=== PATIENT | male | born 2000 | race African-American/Black ===

== ENCOUNTER 2020-12-17 07:24 | Emergency (ER) | payer BC, SELFPAY ==
--- NOTE | 2020-12-17 07:57 | EDPHYS ---
Physician Documentation [facility] Name: Chalino Grant Age: 20 yrs Sex: Male : 2000 Arrival Date: 12/17/2020 Time: 07:25 Bed 23 Private MD: ED Physician Jean Marie Cartagena HPI: 12/17 07:47 This 20 yrs old Black Male presents to ER via Ambulatory with complaints of Shortness rn Of Breath. 07:48 The patient has shortness of breath that woke him/her from sleep. Onset: The rn symptoms/episode began/occurred last night. Duration: The symptoms are intermittent. The patient's shortness of breath is aggravated by supine position, is alleviated by elevating head. Associated signs and symptoms: Pertinent positives: non-productive cough, Pertinent negatives: chest pain, productive cough, fever, hemoptysis, loss of consciousness, nausea, vomiting. Severity of symptoms: At their worst the symptoms were mild in the emergency department the symptoms have improved. The patient has experienced similar episodes in the past. Reports hx of asthma, no longer has inhaler, reports last night had trouble sleeping and felt sob, + dry cough, no fever/chills/muscle aches/nausea/vomiting/diarrhea. No chest pain or abd pain. Reports feels better when sitting up and currently denies any symptoms. Reports came in for inhaler. No known sick contacts. No cardiac problems, and denies any issues or syncope/chest pain with exertion. No famhx of early cardiac problems. . Historical: - Allergies: 07:28 Horse/Equine Containing Products; aa5 - PMHx: 07:28 Asthma; aa5 - Immunization history:: Flu vaccine is not up to date. It has been more than one year since last vaccine. - Social history:: Smoking status: Reported history of juuling and/or vaping. - Family history:: not pertinent. - Hospitalizations: : No recent hospitalization is reported. ROS: 07:48 Constitutional: Negative for fever, chills, and weight loss, Eyes: Negative for injury, rn pain, redness, and discharge, Neck: Negative for injury, pain, and swelling, Cardiovascular: Negative for chest pain, palpitations, and edema, Respiratory: + sob and cough last night, denies sob today Abdomen/GI: Negative for abdominal pain, nausea, vomiting, diarrhea, and constipation, Back: Negative for injury and pain, MS/Extremity: Negative for injury and deformity, Skin: Negative for injury, rash, and discoloration, Neuro: Negative for headache, weakness, numbness, tingling, and seizure. Exam: 07:48 Constitutional: This is a well developed, well nourished patient who is awake, alert, rn and in no acute distress. Ambulatory to room without difficulty. Head/Face: Normocephalic, atraumatic. Eyes: Pupils equal round and reactive to light, extra-ocular motions intact. Periorbital areas with no swelling, redness, or edema. ENT: NO stridor Neck: Trachea midline, no thyromegaly or masses palpated, and no cervical lymphadenopathy. Supple, full range of motion without nuchal rigidity, or vertebral point tenderness. No Meningismus. Cardiovascular: Regular rate and rhythm. No pulse deficits. Respiratory: No increased work of breathing, no retractions or nasal flaring. No wheezing. Abdomen/GI: soft, non-tender Skin: Warm, dry MS/ Extremity: Pulses equal, no cyanosis. Neurovascular intact. Full, normal range of motion. Equal circumference. Neuro: Awake and alert, GCS 15, oriented to person, place, time, and situation. Cranial nerves II-XII grossly intact. Motor strength 5/5 in all extremities. Sensory grossly intact. Cerebellar exam normal. Normal gait. Vital Signs: 07:28 BP 130 / 81; Pulse 83; Resp 18 S; Temp 98.4(O); Pulse Ox 100% on R/A; aa5 08:13 BP 111 / 72; Pulse 83; Resp 18; Pulse Ox 96% on R/A; kg Dianna Coma Score: 07:48 Eye Response: spontaneous(4). Verbal Response: oriented(5). Motor Response: obeys kg commands(6). Total: 15. MDM: 07:29 Patient medically screened. rn 07:48 Differential diagnosis: Anxiety Reaction asthma, Bronchitis URI. Data reviewed: vital rn signs, nurses notes, and as a result, I will discharge patient. Counseling: I had a detailed discussion with the patient and/or guardian regarding: the historical points, exam findings, and any diagnostic results supporting the discharge/admit diagnosis, the need for outpatient follow up, to return to the emergency department if symptoms worsen or persist or if there are any questions or concerns that arise at home. Special discussion: I discussed with the patient/guardian in detail that at this point there is no indication for admission to the hospital. It is understood, however, that if the symptoms persist or worsen the patient needs to return immediately for re-evaluation. Based on the history and exam findings, there is no indication for further emergent testing or inpatient evaluation. I discussed with the patient/guardian the need to see the primary care provider for further evaluation of the symptoms. ED course: Pt currently asymptomatic, clear lungs, no oxygen requirement, no chest pain, will dc home with refill of inhaler and steroids. No indication for emergent imaging or testing as patient feels fine. Return precautions given and understood. . Administered Medications: No medications were administered Disposition: 12/17/20 07:57 Discharged to Home. Impression: Dyspnea, unspecified, Asthma. - Condition is Stable. - Discharge Instructions: Allergies, Adult, Shortness of Breath, Asthma, Acute Bronchospasm. - Prescriptions for Prednisone 20 mg Oral Tablet - take 3 tablet by ORAL route once daily for 5 days; 15 tablet. Albuterol Sulfate 90 mcg/actuation - inhale 1-2 puff by INHALATION route every 4-6 hours; 1 Inhaler. - Medication Reconciliation Form, Thank You Letter, Antibiotic Education, Prescription Opioid Use form. - Follow up: Private Physician; When: As needed; Reason: Recheck today's complaints, Re-evaluation by your physician. - Problem is an ongoing problem. - Symptoms have improved. Signatures: Jean Marie Cartagena MD MD rn Calderon, Audri, RN RN aa5 Desire Holcomb kg Corrections: (The following items were deleted from the chart) 08:17 07:57 12/17/2020 07:57 Discharged to Home. Impression: Dyspnea, unspecified; Asthma. kg Condition is Stable. Forms are Medication Reconciliation Form, Thank You Letter, Antibiotic Education, Prescription Opioid Use. Follow up: Private Physician; When: As needed; Reason: Recheck today's complaints, Re-evaluation by your physician. Problem is an ongoing problem. Symptoms have improved. rn
--- NOTE | 2020-12-17 07:57 | ER ---
Nurse's Notes [facility] Name: Chalino Grant Age: 20 yrs Sex: Male : 2000 Arrival Date: 12/17/2020 Time: 07:25 Bed 23 Private MD: Diagnosis: Dyspnea, unspecified;Asthma Presentation: 12/17 07:28 Chief complaint: Patient states: "I've been having some trouble breathing and my aa5 stomach feels funny". Pt denies abd pain, denies nausea/vomiting, denies cough, denies fever, denies body aches. Reports SOB is on and off. 07:28 Coronavirus screen: shortness of breath. Ebola Screen: Patient negative for fever aa5 greater than or equal to 101.5 degrees Fahrenheit, and additional compatible Ebola Virus Disease symptoms. Initial Sepsis Screen: Does the patient meet any 2 criteria? No. Patient's initial sepsis screen is negative. Does the patient have a suspected source of infection? No. Patient's initial sepsis screen is negative. Risk Assessment: Do you want to hurt yourself or someone else? Patient reports no desire to harm self or others. Onset of symptoms was November 2020. 07:28 Acuity: CHELSEY 4 aa5 07:28 Method Of Arrival: Ambulatory aa5 Triage Assessment: 08:15 Respiratory: the patient has mild shortness of breath. kg Historical: - Allergies: 07:28 Horse/Equine Containing Products; aa5 - PMHx: 07:28 Asthma; aa5 - Immunization history:: Flu vaccine is not up to date. It has been more than one year since last vaccine. - Social history:: Smoking status: Reported history of juuling and/or vaping. - Family history:: not pertinent. - Hospitalizations: : No recent hospitalization is reported. Screenin:48 Abuse screen: Denies threats or abuse. Nutritional screening: No deficits noted. kg Tuberculosis screening: No symptoms or risk factors identified. Fall Risk None identified. Assessment: 07:48 General: Appears in no apparent distress. comfortable, Behavior is calm, cooperative, kg appropriate for age, quiet. Pain: Denies pain. Neuro: No deficits noted. Cardiovascular: No deficits noted. Respiratory: No deficits noted. Reports shortness of breath at rest Airway is patent Respiratory effort is even, relaxed, Breath sounds are clear bilaterally. Onset: The symptoms/episode began/occurred yesterday. Respiratory:. GI: No deficits noted. : No deficits noted. EENT: No deficits noted. Derm: No deficits noted. Musculoskeletal: No deficits noted. 08:14 Cardiovascular: Rhythm is regular. kg Vital Signs: 07:28 BP 130 / 81; Pulse 83; Resp 18 S; Temp 98.4(O); Pulse Ox 100% on R/A; aa5 08:13 BP 111 / 72; Pulse 83; Resp 18; Pulse Ox 96% on R/A; kg Dianna Coma Score: 07:48 Eye Response: spontaneous(4). Verbal Response: oriented(5). Motor Response: obeys kg commands(6). Total: 15. ED Course: 07:25 Patient arrived in ED. am2 07:28 Arm band placed on Patient placed in an exam room, on a stretcher. aa5 07:29 Jean Marie Cartagena MD is Attending Physician. rn 07:42 Desire Holcomb is Primary Nurse. kg 07:45 Triage completed. aa5 07:48 No apparent distress. kg 07:48 Patient has correct armband on for positive identification. Bed in low position. Call kg light in reach. Side rails up X2. 08:14 No provider procedures requiring assistance completed. Patient did not have IV access kg during this emergency room visit. Administered Medications: No medications were administered Outcome: 07:57 Discharge ordered by . rn 08:14 Discharged to home ambulatory. kg 08:14 Condition: good 08:14 Discharge instructions given to patient, Instructed on discharge instructions, follow up and referral plans. medication usage, benefits of quitting smoking, Demonstrated understanding of instructions, follow-up care, medications, Prescriptions given X 2. 08:17 Patient left the ED. kg Signatures: Jean Marie Cartagena MD MD rn Calderon, Audri RN RN Susan Garcia am2 Desire Holcomb kg
[2020-12-17 08:22] VITALS: TEMP 98.4
[2020-12-17 08:23] VITALS: BP 111/72; O2SAT 96
== END 2020-12-17 08:17 | disposition home or self-care (01) ==
LOC: ER 07:24
DX: R06.00 Dyspnea, unspecified (principal); J45.909 Unspecified asthma, uncomplicated; Z91.048 Other nonmedicinal substance allergy status
CPT/HCPCS: 99282

== ENCOUNTER 2021-12-24 08:15 | Emergency (ER) | payer BC ==
[2021-12-24 09:38] LABS: SARS-COV-2 RT PCR NEGATIVE (NEGATIVE)
--- NOTE | 2021-12-24 10:23 | ER ---
Nurse's Notes [facility] Name: Chalino Grant Age: 21 yrs Sex: Male : 2000 Arrival Date: 12/24/2021 Time: 08:19 Bed 10 Private MD: Diagnosis: Acute serous otitis media, left ear;Acute pharyngitis, unspecified Presentation: 12/24 08:23 Chief complaint: Patient states: 3 days had a tingly feeling in throat , yesterday as iw coughing, body aches, was coughing all night and sneezing , throat is still sore. Coronavirus screen: Client presents with at least one sign or symptom that may indicate coronavirus-19. Ebola Screen: Patient negative for fever greater than or equal to 101.5 degrees Fahrenheit, and additional compatible Ebola Virus Disease symptoms Patient denies exposure to infectious person. Patient denies travel to an Ebola-affected area in the 21 days before illness onset. No symptoms or risks identified at this time. Initial Sepsis Screen: Does the patient meet any 2 criteria? No. Patient's initial sepsis screen is negative. Does the patient have a suspected source of infection? No. Patient's initial sepsis screen is negative. Risk Assessment: Do you want to hurt yourself or someone else? Patient reports no desire to harm self or others. Onset of symptoms was December 22, 2021. 08:23 Method Of Arrival: Ambulatory iw 08:23 Acuity: CHELSEY 4 iw Historical: - Allergies: 08:25 NKA; iw - Home Meds: 08:25 None [Active]; iw - PMHx: 08:25 Asthma; iw - Immunization history:: Client reports having NOT received the Covid vaccine. - Social history:: Smoking status: Patient uses street drugs, marijuana. Screenin:31 Abuse screen: Denies threats or abuse. Denies injuries from another. Nutritional iw screening: No deficits noted. Tuberculosis screening: No symptoms or risk factors identified. Fall Risk None identified. Assessment: 08:31 General: Appears in no apparent distress. Behavior is calm, cooperative. Pain: iw Complains of pain in throat. Neuro: Level of Consciousness is awake, alert, obeys commands. Cardiovascular: Patient's skin is warm and dry. Respiratory: Respiratory effort is even, unlabored, Respiratory pattern is regular, Breath sounds are clear bilaterally. 09:00 Reassessment: Patient appears in no apparent distress at this time. Patient and/or iw family updated on plan of care and expected duration. Pain level reassessed. Patient is alert, oriented x 3, equal unlabored respirations, skin warm/dry/pink. Vital Signs: 08:23 BP 115 / 86; Pulse 103; Resp 16; Temp 99.1; Pulse Ox 98% on R/A; Weight 104.78 kg; iw Height 6 ft. 3 in. (190.50 cm); 08:23 Body Mass Index 28.87 (104.78 kg, 190.50 cm) iw ED Course: 08:19 Patient arrived in ED. as 08:25 Triage completed. iw 08:26 Arslan Mckenzie PA is PHCP. [facility] 08:26 Chaparro Patel MD is Attending Physician. [facility] 08:26 Arm band placed on. iw 08:28 Desire Terry RN is Primary Nurse. iw 08:30 Patient has correct armband on for positive identification. iw 09:00 No provider procedures requiring assistance completed. Patient did not have IV access iw during this emergency room visit. Administered Medications: No medications were administered Outcome: 10:23 Discharge ordered by MD. [facility] 10:33 Discharged to home ambulatory. iw 10:33 Condition: good 10:33 Discharge instructions given to patient, Instructed on discharge instructions, follow up and referral plans. medication usage, Demonstrated understanding of instructions, follow-up care, medications, Prescriptions given X 2. 10:34 Patient left the ED. iw Signatures: Arslan Mckenzie PA PA Taylor Bashir as Desire Terry, RN RN iw Corrections: (The following items were deleted from the chart) 15:58 10:33 Discharge instructions given to patient, Instructed on discharge instructions, iw follow up and referral plans. medication usage, Demonstrated understanding of instructions, follow-up care, medications, Prescriptions given X iw
--- NOTE | 2021-12-24 10:24 | EDPHYS ---
Physician Documentation [facility] Name: Chalino Grant Age: 21 yrs Sex: Male : 2000 Arrival Date: 12/24/2021 Time: 08:19 Bed 10 Private MD: ED Physician Chaparro Patel HPI: 12/24 08:32 This 21 yrs old Black Male presents to ER via Ambulatory with complaints of Cough, jmm Congestion, Sneezing. 08:32 The patient or guardian reports cough. Onset: The symptoms/episode began/occurred jmm gradually, 2 day(s) ago. Modifying factors: The symptoms are alleviated by nothing, the symptoms are aggravated by nothing. Associated signs and symptoms: Pertinent positives: sore throat. It is unknown whether or not the patient has had similar symptoms in the past. Historical: - Allergies: 08:25 NKA; iw - Home Meds: 08:25 None [Active]; iw - PMHx: 08:25 Asthma; iw - Immunization history:: Client reports having NOT received the Covid vaccine. - Social history:: Smoking status: Patient uses street drugs, marijuana. ROS: 08:32 Constitutional: Positive for body aches, chills. jmm 08:32 ENT: Positive for sore throat. 08:32 Respiratory: Positive for cough. 08:32 All other systems are negative. Exam: 08:32 Constitutional: This is a well developed, well nourished patient who is awake, alert, jmm and in no acute distress. Head/Face: atraumatic. Eyes: EOMI, no conjunctival erythema appreciated 08:32 Neck: Trachea midline, Supple Chest/axilla: Normal chest wall appearance and motion. Cardiovascular: Regular rate and rhythm. No edema appreciated Respiratory: Normal respirations, no respiratory distress appreciated Abdomen/GI: Non distended, soft Back: Normal ROM Skin: General appearance color normal MS/ Extremity: Moves all extremities, no obvious deformities appreciated, no edema noted to the lower extremities Neuro: Awake and alert Psych: Behavior is normal, Mood is normal, Patient is cooperative and pleasant 08:32 ENT: TM's: erythema, that is moderate, on the left, Posterior pharynx: erythema, that is moderate. Vital Signs: 08:23 BP 115 / 86; Pulse 103; Resp 16; Temp 99.1; Pulse Ox 98% on R/A; Weight 104.78 kg; iw Height 6 ft. 3 in. (190.50 cm); 08:23 Body Mass Index 28.87 (104.78 kg, 190.50 cm) iw MDM: 08:38 Patient medically screened. [facility] 10:21 Data reviewed: vital signs, nurses notes. Counseling: I had a detailed discussion with [facility] the patient and/or guardian regarding: the historical points, exam findings, and any diagnostic results supporting the discharge/admit diagnosis, lab results, the need for outpatient follow up, to return to the emergency department if symptoms worsen or persist or if there are any questions or concerns that arise at home. ED course: Patient is alert and non toxic in appearance in the ED. Advised to follow up with pcp and otherwise given strict return precautions. patient understood and agrees with the plan of care. . 12/24 08:31 Order name: COVID-19/FLU A+B (Document "Date of Onset" if Symptomatic); Complete Time: [facility] 09:39 12/24 08:31 Order name: Strep; Complete Time: 09:33 [facility] 12/24 09:27 Order name: Throat Culture EDMS Administered Medications: No medications were administered Disposition: 16:29 Co-signature as Attending Physician, Chaparro Patel MD I agree with the assessment and kdr plan of care. Disposition Summary: 12/24/21 10:23 Discharge Ordered Location: Home [facility] Condition: Stable [facility] Diagnosis - Acute serous otitis media, left ear jmm - Acute pharyngitis, unspecified [facility] Followup: [facility] - With: Private Physician - When: 2 - 3 days - Reason: Recheck today's complaints, Continuance of care, Re-evaluation by your physician Discharge Instructions: - Discharge Summary Sheet [facility] - Otitis Media, Pediatric jm - Pharyngitis [facility] Forms: - Medication Reconciliation Form [facility] - Thank You Letter [facility] - Antibiotic Education [facility] - Prescription Opioid Use [facility] Prescriptions: - cefdinir 300 mg Oral capsule - take 1 capsule by ORAL route every 12 hours; 20 capsule; Refills: 0, Product [facility] Selection Permitted - Bromfed DM 2-30-10 mg/5 mL Oral syrup - take 10 milliliter by ORAL route every 4 hours; 200 milliliter; Refills: 0, jmm Product Selection Permitted Signatures: Dispatcher [employer] Chaparro Gordon MD MD kdr Mickail, Joel, PA PA jmm Williams, Irene RN RN iw
[2021-12-24 10:50] VITALS: BP 115/86; TEMP 99.1; O2SAT 98
== END 2021-12-24 10:34 | disposition home or self-care (01) ==
LOC: ER 08:15
DX: J02.9 Acute pharyngitis, unspecified (principal); H65.02 Acute serous otitis media, left ear; R05.9 Cough, unspecified; Z20.822 Contact with and (suspected) exposure to COVID-19
CPT/HCPCS: 87070; 87081; 0240U; 99282

== ENCOUNTER 2022-01-17 10:42 | Emergency (ER) | payer OTHER, BC ==
[2022-01-17] MEDS ORDERED: IBUPROFEN 400 MG TAB ONE (11:25)
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
[2022-01-17 13:09] VITALS: BP 123/77; TEMP 98.8; O2SAT 100
== END 2022-01-17 13:01 | disposition home or self-care (01) ==
LOC: ER 10:42
DX: S39.012A Strain of muscle, fascia and tendon of lower back, initial encounter (principal); S29.012A Strain of muscle and tendon of back wall of thorax, initial encounter; M25.562 Pain in left knee; V89.2XXA Person injured in unspecified motor-vehicle accident, traffic, initial encounter; F17.210 Nicotine dependence, cigarettes, uncomplicated; Z91.048 Other nonmedicinal substance allergy status
CPT/HCPCS: 72100; 99283

== ENCOUNTER 2022-08-07 09:17 | Emergency (ER) | payer BC ==
[2022-08-07 10:47] LABS: SARS-COV-2 RT PCR NEGATIVE (NEGATIVE)
--- NOTE | 2022-08-07 10:49 | EDPHYS ---
Physician Documentation [facility] Name: Chalino Grant Age: 22 yrs Sex: Male : 2000 Arrival Date: 08/07/2022 Time: 09:17 Bed 12 Private MD: ED Physician Chema Fountain HPI: 08/07 09:48 This 22 yrs old Black Male presents to ER via Ambulatory with complaints of Cough, Ear snw Pain. 09:48 The patient or guardian reports cough, that is constant, flu symptoms, low-grade fever, snw myalgias, no appetite. Onset: The symptoms/episode began/occurred 2 day(s) ago, and became persistent. Severity of symptoms: At their worst the symptoms were mild, moderate. Associated signs and symptoms:. The patient has not experienced similar symptoms in the past, but family has similar symptoms. The patient has not recently seen a physician. Historical: - Allergies: 09:32 Horse/Equine Containing Products; ap3 - Home Meds: 09:33 None [Active]; ap3 - PMHx: 09:32 Asthma; ap3 - PSHx: 09:32 KATHY ACL; ap3 - Immunization history:: Client reports having NOT received the Covid vaccine. Flu vaccine is not up to date. - Social history:: Smoking status: Patient denies any tobacco usage or history of. Patient uses street drugs, marijuana. ROS: 09:47 Eyes: Negative for injury, pain, redness, and discharge, ENT: Negative for injury, snw pain, and discharge, Neck: Negative for injury, pain, and swelling, Cardiovascular: Negative for chest pain, palpitations, and edema. 09:47 Abdomen/GI: Negative for abdominal pain, nausea, vomiting, diarrhea, and constipation, Back: Negative for injury and pain, : Negative for injury, bleeding, discharge, and swelling, MS/Extremity: Negative for injury and deformity, Skin: Negative for injury, rash, and discoloration. 09:47 Constitutional: Positive for body aches, malaise, poor PO intake. 09:47 Respiratory: Positive for cough. 09:47 Neuro: Positive for headache. Exam: 09:45 Constitutional: This is a well developed, well nourished patient who is awake, alert, snw and in no acute distress. Head/Face: Normocephalic, atraumatic. Eyes: Pupils equal round and reactive to light, extra-ocular motions intact. Lids and lashes normal. Conjunctiva and sclera are non-icteric and not injected. Cornea within normal limits. Periorbital areas with no swelling, redness, or edema. 09:45 Neck: Trachea midline, no thyromegaly or masses palpated, and no cervical lymphadenopathy. Supple, full range of motion without nuchal rigidity, or vertebral point tenderness. No Meningismus. Chest/axilla: Normal chest wall appearance and motion. Nontender with no deformity. No lesions are appreciated. Cardiovascular: Regular rate and rhythm with a normal S1 and S2. No gallops, murmurs, or rubs. Normal PMI, no JVD. No pulse deficits. Respiratory: Lungs have equal breath sounds bilaterally, clear to auscultation and percussion. No rales, rhonchi or wheezes noted. No increased work of breathing, no retractions or nasal flaring. Abdomen/GI: Soft, non-tender, with normal bowel sounds. No distension or tympany. No guarding or rebound. No evidence of tenderness throughout. Back: No spinal tenderness. No costovertebral tenderness. Full range of motion. Skin: Warm, dry with normal turgor. Normal color with no rashes, no lesions, and no evidence of cellulitis. MS/ Extremity: Pulses equal, no cyanosis. Neurovascular intact. Full, normal range of motion. Neuro: Awake and alert, GCS 15, oriented to person, place, time, and situation. Cranial nerves II-XII grossly intact. Motor strength 5/5 in all extremities. Sensory grossly intact. Cerebellar exam normal. Normal gait. Psych: Awake, alert, with orientation to person, place and time. Behavior, mood, and affect are within normal limits. 09:45 ENT: Ear canal(s): erythema, that is minimal, that is moderate, of the right canal, TM's: erythema, that is mild, on the left, Nose: is normal, Mouth: is normal, Posterior pharynx: is normal, Voice: is normal. Vital Signs: 09:30 BP 116 / 74; Pulse 86; Resp 17; Temp 99.0; Pulse Ox 99% ; Weight 108.86 kg; Height 6 ap3 ft. 3 in. (190.50 cm); 09:30 Body Mass Index 30.00 (108.86 kg, 190.50 cm) ap3 MDM: 09:24 Patient medically screened. snw 10:50 Data reviewed: vital signs, nurses notes. Data interpreted: Pulse oximetry: on room air snw is 99 %. Interpretation: normal. Counseling: I had a detailed discussion with the patient and/or guardian regarding: the historical points, exam findings, and any diagnostic results supporting the discharge/admit diagnosis, lab results, the need for outpatient follow up, to return to the emergency department if symptoms worsen or persist or if there are any questions or concerns that arise at home. Special discussion: Based on the history and exam findings, there is no indication for further emergent testing or inpatient evaluation. I discussed with the patient/guardian the need to see the primary care provider for further evaluation of the symptoms. 08/07 09:27 Order name: COVID-19/FLU A+B/RSV; Complete Time: 10:48 ap3 Administered Medications: No medications were administered Disposition: 14:19 Co-signature as Attending Physician, Chema Fountain DO I was immediately available onsite ms3 in the emergency department for consultation in the care of the patient. Disposition Summary: 08/07/22 10:49 Discharge Ordered Location: Home snw Condition: Stable snw Diagnosis - Influenza due to identified novel influenza A virus snw Followup: snw - With: Emergency Department - When: As needed - Reason: Worsening of condition Followup: snw - With: Private Physician - When: 2 - 3 days - Reason: Recheck today's complaints, Continuance of care, Re-evaluation by your physician Discharge Instructions: - Discharge Summary Sheet snw - Fever, Adult snw - Influenza, Adult, [id number] snw - Rehydration, Adult snw Forms: - Medication Reconciliation Form snw - Thank You Letter snw - Antibiotic Education snw - Prescription Opioid Use snw - Work release form snw Prescriptions: - Zyrtec 10 mg Oral Tablet - take 1 tablet by ORAL route once daily As needed; 20 tablet; Refills: 0, snw Product Selection Permitted - Tessalon Perles 100 mg Oral Capsule - take 1 capsule by ORAL route every 8 hours As needed; 15 capsule; Refills: 0, snw Product Selection Permitted - Pepcid 20 mg Oral Tablet - take 1 tablet by ORAL route once daily; 20 tablet; Refills: 0, Product snw Selection Permitted Signatures: Dispatcher [employer] EDLynette Rodríguez, RICO-C [employer] Susan Em, CARLOS RN ap3 Chema Fountain DO DO ms3
--- NOTE | 2022-08-07 10:49 | ER ---
Nurse's Notes [facility] Name: Chalino Grant Age: 22 yrs Sex: Male : 2000 Arrival Date: 08/07/2022 Time: 09:17 Bed 12 Private MD: Diagnosis: Influenza due to identified novel influenza A virus Presentation: 08/07 09:30 Chief complaint: Patient states: he has been having a cough and left ear pain for ap3 approx one week. patient reports that he works outside and states that when he is outside he feels like his symptoms are worse. Coronavirus screen: Client presents with at least one sign or symptom that may indicate coronavirus-19. Standard/surgical mask placed on the client. Ebola Screen: No symptoms or risks identified at this time. Initial Sepsis Screen: Does the patient meet any 2 criteria? No. Patient's initial sepsis screen is negative. Does the patient have a suspected source of infection? No. Patient's initial sepsis screen is negative. Risk Assessment: Do you want to hurt yourself or someone else? Patient reports no desire to harm self or others. Onset of symptoms was July 31, 2022. 09:30 Method Of Arrival: Ambulatory ap3 09:30 Acuity: CHELSEY 4 ap3 Triage Assessment: 09:32 General: Appears in no apparent distress. Behavior is calm, cooperative, appropriate ap3 for age. Pain: Complains of pain in left ear. EENT: Reports nasal congestion. Neuro: Level of Consciousness is awake, alert, obeys commands, Oriented to person, place, time, situation. Respiratory: Reports cough that is Airway is patent Respiratory effort is even, unlabored. Historical: - Allergies: 09:32 Horse/Equine Containing Products; ap3 - Home Meds: 09:33 None [Active]; ap3 - PMHx: 09:32 Asthma; ap3 - PSHx: 09:32 KATHY ACL; ap3 - Immunization history:: Client reports having NOT received the Covid vaccine. Flu vaccine is not up to date. - Social history:: Smoking status: Patient denies any tobacco usage or history of. Patient uses street drugs, marijuana. Screenin:32 Abuse screen: Denies threats or abuse. Nutritional screening: No deficits noted. ap3 Tuberculosis screening: No symptoms or risk factors identified. Fall Risk None identified. Assessment: 10:40 Reassessment: No changes from previously documented assessment. Patient and/or family ap3 updated on plan of care and expected duration. Pain level reassessed. Patient is alert, oriented x 3, equal unlabored respirations, skin warm/dry/pink. Vital Signs: 09:30 BP 116 / 74; Pulse 86; Resp 17; Temp 99.0; Pulse Ox 99% ; Weight 108.86 kg; Height 6 ap3 ft. 3 in. (190.50 cm); 09:30 Body Mass Index 30.00 (108.86 kg, 190.50 cm) ap3 ED Course: 09:17 Patient arrived in ED. am2 09:18 [facility] snw 09:18 Chema Fountain DO is Attending Physician. snw 09:32 Triage completed. ap3 09:33 Arm band placed on right wrist. ap3 09:33 Patient has correct armband on for positive identification. Bed in low position. Call ap3 light in reach. Pulse ox on. NIBP on. Door closed. Noise minimized. 10:40 Susan Em, RN is Primary Nurse. ap3 10:58 No provider procedures requiring assistance completed. Patient did not have IV access ap3 during this emergency room visit. Administered Medications: No medications were administered Medication: 09:33 VIS not applicable for this client. ap3 Outcome: 10:49 Discharge ordered by . snw 10:59 Discharged to home ambulatory. ap3 10:59 Condition: good 10:59 Discharge instructions given to patient, Instructed on discharge instructions, follow up and referral plans. medication usage, Demonstrated understanding of instructions, follow-up care, medications, Prescriptions given X 3. 10:59 Patient left the ED. ap3 Signatures: Lynette Shane FNP-C FNP-Susan Parikh am2 Susan Em, RN RN ap3
[2022-08-07 11:05] VITALS: BP 116/74; TEMP 99; O2SAT 99
== END 2022-08-07 10:59 | disposition home or self-care (01) ==
LOC: ER 09:17
DX: J10.1 Influenza due to other identified influenza virus with other respiratory manifestations (principal); Z20.822 Contact with and (suspected) exposure to COVID-19
CPT/HCPCS: 0241U; 99283